=== PATIENT | male | born 2000 | race Caucasian/White ===

== ENCOUNTER 2021-07-22 12:21 | Emergency (ER) | payer OTHER ==
[~2021-07-22] VITALS: Ht 180.3 cm; Wt 86.2 kg
[2021-07-22] MEDS ORDERED: SODIUM CHLORIDE 0.9% 1000ML 1,000 ML IV STA (12:40)
[2021-07-22 13:02] LABS: BASOPHILS % 0.4 % (0.0-1.0); EOSINOPHILS # (AUTO) 0.1 (0.0-0.4); HEMATOCRIT 49.7 % (38.2-49.6); LYMPHOCYTES # (AUTO) 1.8 (1.0-3.2); LYMPHOCYTES % 25.5 % (18.0-39.1); MEAN CORPUSCULAR HEMOGLOBIN 29.5 pg (28-32); MEAN CORPUSCULAR HGB CONC 34.2 g/dL (31-35); MEAN CORPUSCULAR VOLUME 86.3 fL (81-99); MONOCYTES # (AUTO) 0.6 (0.2-0.8); NEUTROPHILS # (AUTO) 4.6 (2.1-6.9); NEUTROPHILS % 64.8 % (38.7-80.0); PLATELET COUNT 271 x10e3/uL (140-360); RED BLOOD COUNT 5.76 x10e6/uL (4.3-5.7); RED CELL DISTRIBUTION WIDTH 12.1 % (11.7-14.4)
[2021-07-22 13:28] LABS: ALANINE AMINOTRANSFERASE 27 IU/L (0-55); ALBUMIN 4.2 g/dL (3.5-5.0); ALBUMIN/GLOBULIN RATIO 1.2 (0.8-2.0); ALKALINE PHOSPHATASE 95 IU/L (40-150); ANION GAP 13.7 mmol/L (8-16); BLOOD UREA NITROGEN 9 mg/dL (7-26); BUN/CREATININE RATIO 10 (6-25); CALCIUM 9.3 mg/dL (8.4-10.2); CARBON DIOXIDE 24 mmol/L (22-29); CHLORIDE 105 mmol/L (98-107); EST GLOMERULAR FILTRATION RATE 106 ML/MIN (60-); GLUCOSE 126 mg/dL (74-118); POTASSIUM 3.7 mmol/L (3.5-5.1); SODIUM 139 mmol/L (136-145)
[2021-07-22 13:36] LABS: SALICYLATE < 5.0 mg/dL (0-30)
[2021-07-22 13:47] LABS: FREE T4 (FREE THYROXINE) 1.01 ng/dL (0.8-1.8); THYROID STIMULATING HORMONE 2.992 uIU/mL (0.350-4.940)
[2021-07-22 14:19] LABS: AMPHETAMINES SCREEN,URINE NEGATIVE (NEGATIVE); BENZODIAZEPINES SCREEN,URINE NEGATIVE (NEGATIVE); CLARITY,URINE HAZY (CLEAR); COLOR,URINE YELLOW (YELLOW); KETONES,URINE NEGATIVE (NEGATIVE); LEUKOCYTE ESTERASE ,URINE NEGATIVE (NEGATIVE); NITRITE,URINE NEGATIVE (NEGATIVE); PHENCYCLIDINE SCREEN,URINE NEGATIVE (NEGATIVE); PROTEIN,URINE DIPSTICK NEGATIVE (NEGATIVE)
[2021-07-22 14:20] LABS: URINE UROBILINOGEN 0.2 mg/dL (0.2 - 1)
[2021-07-22 14:21] LABS: BACTERIA,URINE FEW /HPF; EPITHELIAL CELLS,URINE FEW /LPF; RBC,URINE 0-5 /HPF (0-5); WBC,URINE (MAN) 0-5 /HPF (0-5)
[2021-07-22 14:33] VITALS: BP 127/86
== END 2021-07-22 14:36 | disposition home or self-care (01) ==
LOC: ER 12:45
DX: R53.81 Other malaise (principal)
CPT/HCPCS: 36415; 80053; 80307; 80320; 80329; 81001; 84439; 84443; 85025; 99283; J7030

== ENCOUNTER 2021-09-01 11:13 | Emergency (ER) | payer OTHER ==
[~2021-09-01] VITALS: Ht 180.3 cm; Wt 90.7 kg
== END 2021-09-01 13:42 | disposition home or self-care (01) ==
LOC: FSED 11:29
DX: K59.00 Constipation, unspecified (principal)
CPT/HCPCS: 74021; 99283